=== PATIENT | male | born 1995 | race Caucasian/White ===

== ENCOUNTER → 2019-07-08 15:07 | Outpatient (CLI) | payer OTHER, SELFPAY ==
--- NOTE | 2019-07-08 | TOBX_PTH ---
PATIENT: MATT BEST LOC: [facility] U#:[id number] AGE/SX: 30/M ROOM: RE07/08/[address]: Dr. Martin Durant MD : 1995 BED: DIS: SPEC #: [id number] RECD: 07/08/19 14:59 STATUS: SARAH MARRERO #: [id number] PIERRE: 07/08/19 00:[address]: Martin Durant DEPT: SURGICAL PATHOLOGY RECD BY: Chacorta Charles ENTERED: 07/09/19 11:09 SP TYPE: TONGUE BX OT DR: Dr. Joshua Viveros MD Tissues: Tongue, NOS Procedures: Special Stain Group I Surgery Specimen Level IV GMS Stain (control) HEADER OPERATION: Tongue mass, biopsy PRE-OP DIAGNOSIS: Tongue mass TISSUE SUBMITTED: Tongue mass for permanent pathology MICROSCOPIC DIAGNOSIS Tongue mass, biopsy: Ulceration with associated acute and chronic inflammation, granulation and epithelial atypia, favor reactive. Negative for fungal organisms. See comment. AM:vincent 07/10/19 COMMENT Immunohistochemistry ([id number]) supports the above diagnosis. GMS stain with matched control was used in the evaluation of this case. Case has been reviewed in consultation with Dr. Burkett who concurs with the above diagnosis. IDC:SILVANA MICROSCOPIC DESCRIPTION Slides are reviewed. GROSS DESCRIPTION Received in fixative is one container labeled with the patient's name and designated tongue. The specimen consists of multiple irregular fragments of quarles-brown soft tissue that in aggregate measure 1 x 0.2 x 0.1 cm. The specimen is totally submitted in one cassette. / SILVANA:vincent 07/09/19 TC:2 CPT: 21118, 09589
--- NOTE | 2019-07-08 | IMM_PTH ---
PATIENT: MATT BEST LOC: [facility] U#:[id number] AGE/SX: 30/M ROOM: RE07/08/[address]: Dr. Martin Durant MD : 1995 BED: DIS: SPEC #: [id number] RECD: 07/10/19 13:55 STATUS: SARAH REQ #: [id number] PIERRE: 07/08/19 00:[address]: Martin Durant DEPT: IMMUNOHISTOCHEMISTRY RECD BY: Kiana Ayon ENTERED: 07/10/19 13:56 SP TYPE: IMMUNO OTHR DR: Dr. Joshua Viveros MD Tissues: Tongue, NOS Procedures: CK14 (add) CK5-6 (add) KI-67 (add) MACRO (add) P53 (add) Pankeratin (initial) P40 (add) PHYSICIAN & INSTITUTION [place] [address] SPECIMEN INFORMATION: Tissue Source: Tongue mass Clinical Info: Tongue mass Specimen Number: [id number] CPT code: 03466, 67049 x6 METHODOLOGY: Deparaffinized sections of prefer/formalin-fixed tissue or PAP/DQ stained slides are incubated with monoclonal/polyclonal antibodies/oligonucleotide probes. Localization is made via biotin free immunoperoxidase method. Appropriate controls are performed and reacted as expected. Results on target cell population are indicated in the following table: RESULTS: ANTIBODY / CLONE RESULT AE1-3 (AE1/AE3/PCK26) positive Macro (HAM-56) negative CK5-6 (D5 & 1684) positive CK14 (LL002) positive P40 (BC28) positive P53 (DO-7) negative Ki-67 (30-9) positive, low These tests were developed and their performance characteristics determined by [facility]. They may not have been cleared or approved by the U.S. Food and Drug Administration. The FDA has determined that such clearance or approval is not necessary. The above immunohistochemical/dualISH markers are ordered and reviewed by the Pathologist. INTERPRETATION: Tongue mass, biopsy: Negative for malignancy. SILVANA:vincent 07/11/19
== END ==
PROVIDERS: Referring Provider Otolaryngology; Visit Provider Otolaryngology
DX: K14.8 Other diseases of tongue (principal)
CPT/HCPCS: 88305; 88312; 88341; 88342

== ENCOUNTER → 2019-07-19 06:57 | Outpatient (CLI) | payer SELFPAY, OTHER ==
--- NOTE | 2019-07-19 07:04 | CT_ITS ---
STUDY: CT SOFT TISSUE NECK WITH CONTRAST REASON FOR EXAM: Male, 24 years old. Right-sided tongue mass and swelling for 3 months. RADIATION DOSAGE (If Supplied By Facility): CTDIvol = ( 15.18 ) mGy, DLP = ( 726.64 ) mGycm TECHNIQUE: The patient was scanned in a multi-detector CT scanner. High resolution transaxial imaging was performed following intravenous administration of IV 100mL Isovue-300. Sagittal and coronal images were reconstructed. Individualized dose optimization techniques were used for this CT. COMPARISON: None. FINDINGS: Normal bilateral parotid glands. Normal bilateral mountain or glacier guide spaces. Normal bilateral parapharyngeal spaces. Normal bilateral carotid spaces. Normal bilateral sublingual and submandibular glands and spaces. Normal visualized nasopharynx. Normal retropharyngeal space. Normal perivertebral space. Normal visualized bilateral faucial tonsils. The visualized tongue, tongue base and oropharynx are normal. There is subcentimeter bilateral jugulodigastric and posterior triangle lymphadenopathy. There is no demonstrated solid or cystic mass lesion. There is no abnormal contrast enhancement. Normal epiglottis, bilateral vallecula and hypopharynx. The pre-epiglottic and paraglottic adipose spaces are normal. Normal visualized bilateral piriform sinuses, aryepiglottic folds, vocal cords, and arytenoid-cricoid articulations. Normal subglottic trachea. Normal bilateral lobes of the thyroid gland. Normal visualized pulmonary apices. Normal visualized paranasal sinuses. Normal visualized cervical spine. CT/Soft Tissue Neck WITH Contrast IMPRESSION: 1. No visualized tongue mass. 2. No other soft tissue abnormality of the neck. 3. Subcentimeter nonspecific cervical lymphadenopathy. Electronically Signed: Alber Burciaga DO at 23:42 EST Tel [phone], Service support ,
== END ==
PROVIDERS: Family Provider Family Medicine; PCP Family Medicine; Referring Provider Otolaryngology; Visit Provider Otolaryngology
DX: R22.0 Localized swelling, mass and lump, head (principal)
CPT/HCPCS: 70491; Q9967

== ENCOUNTER → 2019-08-22 | Outpatient (CLI) | payer OTHER, SELFPAY ==
--- NOTE | 2019-08-22 | IMM_PTH ---
PATIENT: MATT BEST LOC: [facility] U#:[id number] AGE/SX: 24/M ROOM: RE08/22/[address]: Dr. Martin Durant MD : 1995 BED: DIS: 08/22/2019 SPEC #: [id number] RECD: 08/26/19 10:42 STATUS: SARAH REQ #: [id number] PIERRE: 08/22/19 00:[address]: Martin Durant DEPT: IMMUNOHISTOCHEMISTRY RECD BY: Kiana Ayon ENTERED: 08/26/19 10:43 SP TYPE: IMMUNO OTHR DR: Dr. Ayden Ang MD Tissues: Tongue, NOS Procedures: p16 (initial) PHYSICIAN & INSTITUTION [place] [address] SPECIMEN INFORMATION: Tissue Source: Right tongue mass Clinical Info: Tongue lesion Specimen Number: [id number] CPT code: 22693 METHODOLOGY: Deparaffinized sections of prefer/formalin-fixed tissue or PAP/DQ stained slides are incubated with monoclonal/polyclonal antibodies/oligonucleotide probes. Localization is made via biotin free immunoperoxidase method. Appropriate controls are performed and reacted as expected. Results on target cell population are indicated in the following table: RESULTS: ANTIBODY / CLONE RESULT P16 (E6H4) negative These tests were developed and their performance characteristics determined by [facility]. They may not have been cleared or approved by the U.S. Food and Drug Administration. The FDA has determined that such clearance or approval is not necessary. The above immunohistochemical/dualISH markers are ordered and reviewed by the Pathologist. 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 SJ:vincent 08/27/19 Case has been reviewed in consultation with Dr. Yeh who concurs with the above diagnosis. IDC:AM
--- NOTE | 2019-08-22 | TOBX_PTH ---
PATIENT: MATT BEST LOC: [facility] U#:[id number] AGE/SX: 24/M ROOM: RE08/22/[address]: Dr. Martin Durant MD : 1995 BED: DIS: 08/22/2019 SPEC #: [id number] RECD: 08/22/19 17:00 STATUS: SARAH ELIDA #: [id number] PIERRE: 08/22/19 00:[address]: Martin Durant DEPT: SURGICAL PATHOLOGY RECD BY: Misha Olson ENTERED: 08/23/19 07:52 SP TYPE: TONGUE BX OTHR DR: Dr. Ayden Ang MD Tissues: Tongue, NOS Procedures: Surgery Specimen Level IV HEADER OPERATION: Biopsy PRE-OP DIAGNOSIS: Tongue lesion TISSUE SUBMITTED: Right tongue mass MICROSCOPIC DIAGNOSIS Right tongue mass, biopsy: Invasive well differentiated squamous cell carcinoma. See comment. SILVANA:vincent 08/26/19 COMMENT The tumor is present at the resection margin of the specimen. The tumor also shows marked chronic inflammation. Immunohistochemistry ([id number]) for surrogate HPV marker (p16) will be performed and the results will be reported separately. Please make reference to previous specimen ([id number]) tongue mass, biopsy with diagnosis of ulceration with associated acute and chronic inflammation, granulation and epithelial atypia, favor reactive. Clinical correlation and appropriate follow up are necessary. Case has been reviewed in consultation with Dr. Yeh who concurs with the above diagnosis. IDC:AM MICROSCOPIC DESCRIPTION Slides are reviewed. GROSS DESCRIPTION Received in fixative is one container labeled with the patient's name and designated right tongue mass. The specimen consists of a piece of quarles mucosal tissue measuring 1 x 0.7 x 0.2 cm. The specimen is inked, bisected and submitted entirely in one cassette. / SILVANA:vincent 08/23/19 TC:0 CPT: 15971 ADDENDUM ADDENDUM ADDENDUM ADDENDUM ADDENDUM ADDENDUM ADDENDUM ADDENDUM ADDENDUM ADDENDUM 12/24/2019 09:55 ADDENDUM 12/24/2019 09:55 ADDENDUM 12/24/2019 09:55 ADDENDUM 12/24/2019 09:55 ADDENDUM 12/24/2019 09:55 This addendum is added to incorporate an outside pathology consultation report. The case was examined at [facility] (#[id number]) and the following diagnosis was rendered. Right tongue mass, biopsy: Invasive moderately differentiated squamous cell carcinoma. Please see complete above mentioned consultation report in EMR
== END | disposition home or self-care (01) ==
LOC: LABSPEC 17:03
PROVIDERS: PCP Family Medicine; Referring Provider Otolaryngology; Visit Provider Otolaryngology
DX: K14.8 Other diseases of tongue (principal)
CPT/HCPCS: 88305; 88342